=== PATIENT | male | born 1950 | race Hispanic/Latino ===

== ENCOUNTER 2019-02-27 06:00 | Day surgery (SDC) | payer OTHER, MEDICARE ==
[2019-02-25 09:14] VITALS: BP 115/61
[2019-02-25 09:20] LABS: BASOPHILS % (AUTO) 0.9 % (0.0-5.0); HEMATOCRIT 40.5 % (42-54); LYMPHOCYTES % (AUTO) 24.4 % (21.0-51.0); MEAN CORPUSCULAR HEMOGLOBIN 29.5 pg (27.0-33.0); MEAN CORPUSCULAR HGB CONC 32.7 g/dL (32.0-36.0); MEAN CORPUSCULAR VOLUME 90.2 fL (79-99); MONOCYTES % (AUTO) 12.1 % (3.0-13.0); NEUTROPHILS % (AUTO) 59.6 % (40.0-77.0); NUCLEATED RED BLOOD CELLS 0.1 % (0.0-0.19); PLATELET COUNT (AUTO) 94 K/uL (130-400); RED BLOOD CELL COUNT(AUTO) 4.48 MIL/uL (4.50-6.20); RED CELL DISTRIBUTION WIDTH 13.5 % (11.0-15.5)
[2019-02-25 09:29] LABS: CREATININE 1.3 mg/dL (0.5-1.5); POTASSIUM 4.4 mmol/L (3.5-5.1)
[2019-02-25 09:34] LABS: INR 1.09 (0.85-1.15); PARTIAL THROMBOPLASTIN TIME 30.4 SEC (26.3-35.5); PROTHROMBIN TIME 11.4 SEC (9.6-11.6)
--- NOTE | 2019-02-26 14:36 | NUR ---
LABS INFORMED GURPREET ARANDA OF ABNORMAL PLATELET LEVEL. PER DR. ELIAS, PROCEED WITH PLANNED PROCEDURE.
[2019-02-27] VITALS (9 sets, daily range): BP systolic 101–131; BP diastolic 58–66
[~2019-02-27] VITALS: Ht 175.3 cm; Wt 86.6 kg
[~2019-02-27 06:00] MED LIST: APIX5TAB PO; ISOS30TA6 PO; METO-408 PO; OMEP40CA37 PO; SIMV40TA59 PO
[2019-02-27] MEDS ORDERED: SODIUM CHLORIDE 0.9% 1000ML 1,000 ML IV ONE (07:05)
[2019-02-27] MEDS ORDERED: LIDOCAINE HCL 2% 20ML ONE (09:30)
[2019-02-27] MEDS ORDERED: MIDAZOLAM HCL 1 MG/ML 2ML VIAL ONE ×2 (09:44→10:41)
[2019-02-27] MEDS ORDERED: MEPERIDINE-PF 25 MG/ML SYG ONE ×2 (09:44→10:41)
== END 2019-02-27 14:52 | disposition home or self-care (01) ==
LOC: DAH 06:00
PROVIDERS: ATTEND Internal Medicine Cardiovascular Disease
DX: I48.3 Typical atrial flutter (principal); I25.10 Atherosclerotic heart disease of native coronary artery without angina pectoris; E78.5 Hyperlipidemia, unspecified; K21.9 Gastro-esophageal reflux disease without esophagitis; Z79.82 Long term (current) use of aspirin; Z79.899 Other long term (current) drug therapy; Z79.01 Long term (current) use of anticoagulants; Z87.891 Personal history of nicotine dependence; Z98.890 Other specified postprocedural states; Z72.89 Other problems related to lifestyle
CPT/HCPCS: 36415; 80048; 85025; 85610; 85730; 93005; 93613; 93621; 93653; A4606; A4649; C1730 ×2; C1732; C1894 ×2; J1644; J2175 ×2; J2250 ×2; J3490; J7030; 99156; 99157